=== PATIENT | female | born 1985 | race African-American/Black ===

== ENCOUNTER 2019-01-15 10:49 | Emergency (ER) | payer SELFPAY ==
[2019-01-15] MEDS ORDERED: ASPIRIN 81 MG TABLET, CHEWABLE PO ONE (12:30)
--- NOTE | 2019-01-15 12:32 | ER Document Report ---
ED Medical Screen (RME) - General Chief Complaint: Chest Pain Stated Complaint: PALPITATIONS Time Seen by Provider: 01/15/19 12:30 Primary Care Provider: TADEO YEE MD [Primary Care Provider] - Follow up as needed Mode of Arrival: Ambulatory Information source: Patient Notes: Patient presents complaining of midsternal chest pain, dizziness and shortness of breath that has been off and on for the past month. Patient states that she has symptoms daily. Patient states that she came today as this was convenient for her schedule. Patient describes her dizziness as a feeling off balance and faint at times. hx: Hypertension, anemia I have greeted and performed a rapid initial assessment of this patient. A comprehensive ED assessment and evaluation of the patient, analysis of test results and completion of the medical decision making process will be conducted by additional ED providers. TRAVEL OUTSIDE OF THE [place] IN LAST 30 DAYS: No - Related Data Allergies/Adverse Reactions: No Known Allergies Allergy (Verified 01/15/19 10:50) Physical Exam - Vital signs Vitals: Temp Pulse Resp BP Pulse Ox 98.2 F 96 16 135/85 H 100 01/15/19 11:01 01/15/19 11:01 01/15/19 11:01 01/15/19 11:01 01/15/19 11:01 - Respiratory Respiratory status: No respiratory distress Breath sounds: Normal - Cardiovascular Rhythm: Regular Heart sounds: S1 appreciated, S2 appreciated Course - Vital Signs Vital signs: Temp Pulse Resp BP Pulse Ox 98.2 F 96 16 135/85 H 100 01/15/19 11:01 01/15/19 11:01 01/15/19 11:01 01/15/19 11:01 01/15/19 11:01 Doctor's Discharge - Discharge Referrals: TADEO YEE MD [Primary Care Provider] - Follow up as needed
--- NOTE | 2019-01-15 13:05 | RADIOLOGY REPORT (SQ) ---
EXAM DESCRIPTION: CHEST 2 VIEWS COMPLETED DATE/TIME: 01/15/2019 12:45 pm REASON FOR STUDY: cp COMPARISON: None. EXAM PARAMETERS: NUMBER OF VIEWS: two views TECHNIQUE: Digital Frontal and Lateral radiographic views of the chest acquired. RADIATION DOSE: NA LIMITATIONS: none FINDINGS: LUNGS AND PLEURA: No opacities, masses or pneumothorax. No pleural effusion. MEDIASTINUM AND HILAR STRUCTURES: No masses or contour abnormalities. HEART AND VASCULAR STRUCTURES: Heart normal size. No evidence for failure. BONES: No acute findings. HARDWARE: None in the chest. OTHER: No other significant finding. IMPRESSION: NO ACUTE RADIOGRAPHIC FINDING IN THE CHEST. TECHNICAL DOCUMENTATION: JOB ID: [id number] [place]-72 2010 [employer]- All Rights Reserved Reading location - IP/workstation name: [email or web address]
[2019-01-15 13:12] LABS: ABSOLUTE BASOPHILS # (AUTO) 0.1 10^3/uL (0.0-0.2); ABSOLUTE LYMPHOCYTES (AUTO) 2.5 10^3/uL (0.5-4.7); ABSOLUTE MONOCYTES (AUTO) 0.3 10^3/uL (0.1-1.4); BASOPHILS % (AUTO) 0.6 % (0-2); EOSINOPHILS % (AUTO) 0.1 % (0-6); HEMATOCRIT 18.1 % (36.0-47.0); MEAN CORPUSCULAR HGB CONC 29.2 g/dL (32.0-36.0); MONOCYTES % (AUTO) 3.9 % (3-13); PLATELET COUNT 415 10^3/uL (150-450); RED BLOOD COUNT 2.94 10^6/uL (3.72-5.28); RED CELL DISTRIBUTION WIDTH 19.1 % (11.5-14.0); SEGMENTED NEUTROPHILS % (AUTO) 67.4 % (42-78); TOTAL CELLS COUNTED % (AUTO) 100 %; WHITE BLOOD COUNT 8.9 10^3/uL (4.0-10.5)
[2019-01-15 13:23] LABS: HEMOGLOBIN 5.3 g/dL (12.0-15.5); MEAN CORPUSCULAR VOLUME 62 fl (80-97)
[2019-01-15 13:32] LABS: ALANINE AMINOTRANSFERASE 25 U/L (9-52); ALBUMIN 4.1 g/dL (3.5-5.0); ALKALINE PHOSPHATASE 54 U/L (38-126); ANION GAP 9 (5-19); ASPARTATE AMINO TRANSFERASE 18 U/L (14-36); BILIRUBIN,DIRECT 0.2 mg/dL (0.0-0.4); BILIRUBIN,TOTAL 0.2 mg/dL (0.2-1.3); BLOOD UREA NITROGEN 10 mg/dL (7-20); CALCIUM 9.3 mg/dL (8.4-10.2); CARBON DIOXIDE 24 mmol/L (22-30); CHLORIDE 107 mmol/L (98-107); GLUCOSE 83 mg/dL (75-110); POTASSIUM 4.3 mmol/L (3.6-5.0); SODIUM 140.2 mmol/L (137-145); TOTAL PROTEIN 7.4 g/dL (6.3-8.2)
[2019-01-15 13:39] LABS: ANISOCYTOSIS 2+; BURR CELLS SLIGHT; HYPOCHROMASIA 3+; OVALOCYTES 1+; POIKILOCYTOSIS 1+; POLYCHROMASIA SLIGHT
[2019-01-15 13:40] LABS: SCHISTOCYTES 1+; TEAR DROP CELLS SLIGHT
[2019-01-15 13:41] LABS: PLATELET COMMENT ADEQUATE
[2019-01-15 14:05] LABS: INTERNATIONAL RATION (INR) 0.96; PROTHROMBIN TIME 13.3 SEC (11.4-15.4)
[2019-01-15 14:06] LABS: PARTIAL THROMBOPLASTIN TIME 29.2 SEC (23.5-35.8)
[2019-01-15] MEDS ORDERED: NORMAL SALINE 250 ML IV PRN (15:05)
--- NOTE | 2019-01-15 16:04 | RADIOLOGY REPORT (SQ) ---
EXAM DESCRIPTION: U/S NON-OB PELVIS TV W/O DOP COMPLETED DATE/TIME: 01/15/2019 3:47 pm REASON FOR STUDY: Heavy periods for the past 8 months COMPARISON: None. TECHNIQUE: Dynamic and static grayscale images acquired of the pelvis via transvaginal approach and recorded on PACS. Additional selected color Doppler and spectral images recorded. LIMITATIONS: None. FINDINGS: UTERUS: 5.8 cm heterogeneous mass in the expected location of the endometrium, there is so me internal color flow, possible intraluminal fibroid. CERVIX: Small nabothian cysts. RIGHT OVARY AND DOPPLER: Ovary not visualized. LEFT OVARY AND DOPPLER: Normal size. No worrisome masses. Normal arterial vascular flow without evide nce for torsion. FREE FLUID: None noted. OTHER: No other significant finding. MEASUREMENTS: UTERUS: 11.8 x 9.3 x 7.3 cm ENDOMETRIAL STRIPE: Obscured RIGHT OVARY: Not visualized. LEFT OVARY: 3.7 x 1.8 x 1.5 cm IMPRESSION: 5.8 cm heterogeneous mass in the expected location of the endometrium, there is some int ernal color flow, possible intraluminal fibroid. Fiction And Nonfiction Author consultation recommended. TECHNICAL DOCUMENTATION: JOB ID: [id number] [place]-72 2010 [employer]- All Rights Reserved Rev-01/24 Reading location - IP/workstation name: [email or web address]
[2019-01-15] MEDS ORDERED: MEDROXYPROGESTERONE ACET INJ 150 MG/1 ML VIAL IM ONE (17:00)
--- NOTE | 2019-01-15 19:41 | EKG REPORT ---
SEVERITY:- BORDERLINE ECG - SINUS RHYTHM PROBABLE LEFT ATRIAL ABNORMALITY BORDERLINE T WAVE ABNORMALITIES : Confirmed by: Radha Murphy MD 15-Jan-2019 19:40:45
--- NOTE | 2019-01-15 21:23 | ER Document Report ---
Entered by ABRAHAM CALVILLO SCRIBE 01/15/19 1505 Acting as scribe for:AMY BAIRD MD ED General - General Chief Complaint: Chest Pain Stated Complaint: PALPITATIONS Time Seen by Provider: 01/15/19 12:30 Primary Care Provider: NOE LEACH MD [ACTIVE STAFF] - Follow up in 3-5 days (Call the office tomorrow to schedule an appointment next week with Dr. Leach.) Mode of Arrival: Ambulatory Information source: Patient Notes: 33-year-old female with hypertension and iron-deficiency anemia who presents to the emergency department today with complaints of palpitations, lightheadedness, chest tightness, dizziness, and shortness of breath. Patient states that she has been diagnosed with iron deficiency anemia in the past but cannot remember any of her hemoglobin levels. Patient states she has been having heavy periods for the last x6-8 months. Patient states she was recently started on Seasonique and has taken it for the last x4 days. Patient states her last menstrual period began no January 07. TRAVEL OUTSIDE OF THE [place] IN LAST 30 DAYS: No - Related Data Allergies/Adverse Reactions: No Known Allergies Allergy (Verified 01/15/19 10:50) Past Medical History - General Information source: Patient - Social History Smoking Status: Current Every Day Smoker Cigarette use (# per day): Yes Frequency of alcohol use: None Drug Abuse: None Lives with: Family Family History: Reviewed & Not Pertinent Patient has suicidal ideation: No Patient has homicidal ideation: No - Past Medical History Cardiac Medical History: Reports: Hx Hypertension Past Surgical History: Reports: Hx Cholecystectomy, Hx Gynecologic Surgery - L EEP, Hx Oral Surgery - wisdom surgery Review of Systems - Review of Systems Constitutional: No symptoms reported EENT: No symptoms reported Cardiovascular: See HPI, Chest pain, Palpitations, Lightheaded Respiratory: No symptoms reported Gastrointestinal: No symptoms reported Genitourinary: No symptoms reported Female Genitourinary: No symptoms reported Musculoskeletal: No symptoms reported Skin: No symptoms reported Hematologic/Lymphatic: No symptoms reported Neurological/Psychological: No symptoms reported -: Yes All other systems reviewed and negative Physical Exam - Vital signs Vitals: Temp Pulse Resp BP Pulse Ox 98.2 F 96 16 135/85 H 100 01/15/19 11:01 01/15/19 11:01 01/15/19 11:01 01/15/19 11:01 01/15/19 11:01 - Notes Notes: Physical Exam: General: Alert, appears well. HEENT: Normocephalic. Atraumatic. PERRL. Extraocular movements intact. Oropharynx clear. Pale conjunctiva. Pale nail beds. Pale lips. Neck: Supple. Non-tender. Respiratory: No respiratory distress. Clear and equal breath sounds bilaterally. Cardiovascular: Regular rate and rhythm. Abdominal: Normal Inspection. Non-tender. No distension. Normal Bowel Sounds. Back: Non-tender. No deformity or step off. Extremities: Moves all four extremities. Upper extremities: Normal inspection. Normal ROM. Lower extremities: Trace edema. Normal ROM. Neurological: Normal cognition. AAOx4. Normal speech. Psychological: Normal affect. Normal Mood. Skin: Warm. Dry. Normal color. Course - Vital Signs Vital signs: Temp Pulse Resp BP Pulse Ox 98.3 F 87 12 127/95 H 100 01/15/19 17:02 01/15/19 17:02 01/15/19 17:02 01/15/19 17:02 01/15/19 17:02 - Laboratory Result Diagrams: 01/15/19 12:57 01/15/19 12:57 Laboratory results interpreted by me: 01/15/19 01/15/19 01/15/19 12:57 12:57 14:10 RBC 2.94 L Hgb 5.3 L Hct 18.1 L MCV 62 L MCH 18.0 L MCHC 29.2 L RDW 19.1 H D-Dimer 1.83 H Crossmatch See Detail - Diagnostic Test Radiology reviewed: Image reviewed, Reports reviewed - Ultrasound shows an endometrial fibroid. - EKG Interpretation by Nv EKG shows normal: Sinus rhythm, [place], Intervals, QRS Complexes. abnormal: ST-T Waves - Borderline T wave abnormality Rate: Normal - 92 Rhythm: NSR P Waves: LAE When compared to previous EKG there are: Previous EKG unavailable - Consults Dr. Leach Time consulted: 16:48 Consulted provider: follow-up in office - Stop the Seasonique. Give Depo- Medrol. Start iron pills daily and vitamin C. Follow-up in the office next week. Critical Care Note - Critical Care Note Total time excluding time spent on procedures (mins): 35 Discharge - Discharge Clinical Impression: Chronic blood loss anemia Fibroid, uterine Qualifiers: Uterine leiomyoma location: unspecified location Qualified Code(s): D25.9 - Leiomyoma of uterus, unspecified Condition: Stable Disposition: HOME, SELF-CARE Additional Instructions: Fibroids: Fibroids are benign growths in the uterus. They can cause enlargement of the uterus, irregular bleeding, sever bleeding with periods, and abdominal pain. Anemia may result if periods are heavy. If fibroids cause severe symptoms, they can be treated surgically. Anemia, Iron Deficiency: You have anemia (a lower than normal amount of red blood cells). Our tests show it's due to lack of iron in your body. In adults, it's most often caused by blood loss (heavy periods or intestinal bleeding) or by . Iron-deficiency is treated with iron supplements. Iron pills can upset your stomach and cause constipation. Taking it with food decreases nausea. Expect the stool to become darker (but not black). Taking iron with a juice high in vitamin C (orange juice, tomato juice) increases absorption. You can increase your dietary iron by eating liver, oysters, and lean beef; wheat germ, peas, and lentils; and molasses, dried prunes, spinach, and brocco li. Contact the doctor at once if you note black or tarry-looking stools, bloody vomiting, shortness of breath, chest pain, or faintness. Stop taking the Seasonique control pills. Start taking the iron pills as prescribed. Call [facility] tomorrow to schedule an appointment with Dr. Leach next week. RETURN TO THE EMERGENCY ROOM IF ANY NEW OR WORSENING SYMPTOMS. Prescriptions: Ferrous Sulfate/Vit C/Folic AC [Folitab 500 Caplet] 1 each PO DAILY #100 tablet.er Referrals: NOE LEACH MD [ACTIVE STAFF] - Follow up in 3-5 days (Call the office tomorrow to schedule an appointment next week with Dr. Leach.) Scribe Attestation: 01/15/19 16:49 I personally performed the services described in the documentation, reviewed and edited the documentation which was dictated to the scribe in my presence, and it accurately records my words and actions. I personally performed the services described in the documentation, reviewed and edited the documentation which was dictated to the scribe in my presence, and it accurately records my words and actions.
[2019-01-15 23:54] VITALS: BP 125/82
[2019-01-16 11:49] LABS: PATH REVIEW PATHOLOGIST REVIEWED
== END 2019-01-15 23:58 | disposition home or self-care (01) ==
LOC: ER 10:49
DX: D50.0 Iron deficiency anemia secondary to blood loss (chronic) (principal); D25.9 Leiomyoma of uterus, unspecified; I10 Essential (primary) hypertension; R00.2 Palpitations; R07.89 Other chest pain; R42 Dizziness and giddiness; R06.02 Shortness of breath; F17.210 Nicotine dependence, cigarettes, uncomplicated; R60.0 Localized edema
CPT/HCPCS: 93005; 99291; 96372; 86900; 86901; 36415; 36430; 86850; 83735; 84443; 84703; 85025; 85610; 85730; 80053; 84484; 86920; 85379; 71046; 76830; 93010; P9016; J1050